=== PATIENT | male | born 1970 | race Two or more races ===

== ENCOUNTER 2016-04-23 20:55 | Emergency (ER) | payer MEDICAID ==
[~2016-04-23] VITALS: Ht 172.7 cm; Wt 77.1 kg
[2016-04-24 05:57] VITALS: BP 115/65
== END 2016-04-24 05:40 | disposition home or self-care (01) ==
LOC: ER 20:56
DX: F10.129 Alcohol abuse with intoxication, unspecified (principal); I10 Essential (primary) hypertension; R79.89 Other specified abnormal findings of blood chemistry
CPT/HCPCS: 36415; 82962; 99283; A4606; G0480; Z7610

== ENCOUNTER 2016-04-24 10:54 | Emergency (ER) | payer MEDICAID ==
[~2016-04-24] VITALS: Ht 172.7 cm; Wt 79.4 kg
[2016-04-24 10:54] VITALS: BP 139/88
== END 2016-04-24 14:54 | disposition left against medical advice (07) ==
LOC: ER 10:58
DX: F10.10 Alcohol abuse, uncomplicated (principal); R73.09 Other abnormal glucose
CPT/HCPCS: 82962; 99283; A4606; Z7610

== ENCOUNTER 2016-04-25 22:48 | Emergency (ER) | payer MEDICAID ==
[~2016-04-25] VITALS: Ht 188 cm; Wt 91.6 kg
[2016-04-25] MEDS ORDERED: IV NS 0.9% 1,000 ML BAG IV ONE (23:00)
[2016-04-25 23:53] LABS: BASOPHILS % (AUTO) 0.1 % (0.0-2.0); DIFF TOTAL % 100 %; EOSINOPHILS % (AUTO) 0.4 % (0.0-6.0); HEMATOCRIT 46 % (39-51); HEMOGLOBIN 15.1 g/dL (13.5-17.5); LYMPHOCYTES # (AUTO) 1.6 /CMM (0.8-4.8); LYMPHOCYTES % (AUTO) 47.7 % (20.0-44.0); MEAN CORPUSCULAR HEMOGLOBIN 29 PG (26.0-33.0); MEAN CORPUSCULAR HGB CONC 33 g/dl (31.0-36.0); MEAN CORPUSCULAR VOLUME 88 fL (80-96); MONOCYTES # (AUTO) 0.1 /CMM (0.1-1.30); MONOCYTES % (AUTO) 3.8 % (2.0-12.0); NEUTROPHILS # (AUTO) 1.6 /CMM (1.8-8.9); PLATELET COUNT (AUTO) 217 /CMM (150-450); RED BLOOD CELL COUNT(AUTO) 5.24 MIL/uL (4.5-6.0); WHITE BLOOD COUNT (AUTO) 3.4 K/uL (4.3-11.0)
[2016-04-26 00:04] LABS: CALCIUM, SERUM 8.4 mg/dL (8.5-10.1); CREATININE 0.8 mg/dL (0.6-1.3); POTASSIUM 3.8 mmol/L (3.5-5.1)
[2016-04-26 00:09] LABS: INR 0.93 (0.87-1.13)
[2016-04-26 00:19] LABS: ALBUMIN 4.2 g/dL (3.4-5.0); BILIRUBIN,DIRECT 0.1 mg/dL (0.0-0.2); BILIRUBIN,TOTAL 0.4 mg/dL (0.2-1.0); INDIRECT BILIRUBIN 0.3 mg/dL (0.0-1.1); SALICYLATE 1.8 mg/dL (2.8-20.0); TOTAL PROTEIN, SERUM 7.6 g/dL (6.4-8.2)
[2016-04-26] MEDS ORDERED: IV SET PRIMARY 1 EA INFUS.SET MC ONE (03:44)
[2016-04-26] MEDS ORDERED: IV NS 0.9% 1,000 ML ONE (03:44)
[2016-04-26 07:35] VITALS: BP 128/76
== END 2016-04-26 07:37 | disposition home or self-care (01) ==
LOC: ER 22:50
DX: F10.121 Alcohol abuse with intoxication delirium (principal); R41.82 Altered mental status, unspecified; I10 Essential (primary) hypertension
CPT/HCPCS: 36415; 51702; 70450; 71010; 72125; 80048; 80076; 80329; 85025; 85730; 93005; 96360; 99285; A4606; G0480 ×2; J7030; Z7610; G6039-TC

== ENCOUNTER 2023-01-19 12:40 | Inpatient (IN) | payer MEDICAID ==
[~2023-01-19] VITALS: Ht 188 cm; Wt 99.3 kg
[~2023-01-19 12:40] MED LIST: ATOR10TA PO; CHLO25CA22 PO; HYDR12.55 PO; Thiamine HCL PO
[2023-01-19 13:32] LABS: BASOPHILS # (AUTO) 0.1 K/uL (0.0-0.2); BASOPHILS % (AUTO) 0.4 % (0.0-2.0); HEMATOCRIT 52 % (39-51); HEMOGLOBIN 16.8 g/dL (13.5-17.5); LYMPHOCYTES # (AUTO) 0.4 K/uL (0.8-4.8); LYMPHOCYTES % (AUTO) 3.3 % (20.0-44.0); MEAN CORPUSCULAR HEMOGLOBIN 28 PG (26.0-33.0); MEAN CORPUSCULAR HGB CONC 33 g/dl (31.0-36.0); MEAN CORPUSCULAR VOLUME 87 fL (80-96); MONOCYTES # (AUTO) 0.7 K/uL (0.1-1.30); MONOCYTES % (AUTO) 5.5 % (2.0-12.0); NEUTROPHILS # (AUTO) 10.7 K/uL (1.8-8.9); NEUTROPHILS % (AUTO) 90.8 % (43.0-81.0); PLATELET COUNT (AUTO) 312 K/uL (150-450); RED BLOOD CELL COUNT(AUTO) 5.96 MIL/uL (4.5-6.0); RED CELL DISTRIBUTION WIDTH 17.3 % (11.5-15.0); WHITE BLOOD COUNT (AUTO) 11.8 K/uL (4.3-11.0)
[2023-01-19 14:04] LABS: ALBUMIN 4.9 g/dL (3.4-5.0); BILIRUBIN,DIRECT 0.2 mg/dL (0.0-0.2); BILIRUBIN,TOTAL 0.7 mg/dL (0.2-1.0); CALCIUM, SERUM 8.7 mg/dL (8.5-10.1); CREATININE 3.1 mg/dL (0.6-1.3); TOTAL PROTEIN, SERUM 8.6 g/dL (6.4-8.2)
[2023-01-19 14:05] LABS: SALICYLATE 2.7 mg/dL (2.8-20.0)
[2023-01-19] MEDS ORDERED: LORAZEPAM INJ 2 MG/ML VIAL IV ONE (20:00)
[2023-01-19] MEDS ORDERED: IV NS 0.9% 1,000 ML BAG IV ONE (20:00)
[2023-01-19] MEDS ORDERED: LORAZEPAM INJ 2 MG/ML VIAL ONE (20:02)
[2023-01-19] MEDS ORDERED: Z GUARD REMEDY 4 OZ OINT TP PRN (22:30)
[2023-01-19] MEDS ORDERED: MAG HYDROX/AL HYDROX/SIMETH 30 ML UDC PO PRN (22:30)
[2023-01-19] MEDS ORDERED: MAGNESIUM HYDROXIDE 30 ML UDC PO PRN (22:30)
[2023-01-19] MEDS: IV NS 0.9% 1,000 ML IV SCH (22:30)
[2023-01-19] MEDS ORDERED: ACETAMINOPHEN 325 MG TABLET PO PRN (22:30)
[2023-01-20] MEDS ORDERED: THIAMINE HCL 100 MG TABLET PO SCH (00:30)
[2023-01-20] MEDS ORDERED: ONDANSETRON HCL/PF 4 MG/2 ML VIAL ONE (03:24)
[2023-01-20] MEDS: ONDANSETRON HCL/PF 4 MG/2 ML VIAL IVP PRN ×2 (03:27→12:36)
[2023-01-20 05:41] LABS: CALCIUM, SERUM 7.7 mg/dL (8.5-10.1); CREATININE 2.8 mg/dL (0.6-1.3); MAGNESIUM 2.5 mg/dL (1.8-2.4); PHOSPHORUS 5.6 mg/dL (2.5-4.9); POTASSIUM 3.9 mmol/L (3.5-5.1)
[2023-01-20 05:46] LABS: BASOPHILS % (AUTO) 0.1 % (0.0-2.0); HEMATOCRIT 44 % (39-51); LYMPHOCYTES # (AUTO) 0.4 K/uL (0.8-4.8); LYMPHOCYTES % (AUTO) 3.6 % (20.0-44.0); MEAN CORPUSCULAR HEMOGLOBIN 29 PG (26.0-33.0); MEAN CORPUSCULAR HGB CONC 34 g/dl (31.0-36.0); MEAN CORPUSCULAR VOLUME 85 fL (80-96); MONOCYTES # (AUTO) 0.7 K/uL (0.1-1.30); MONOCYTES % (AUTO) 6.5 % (2.0-12.0); NEUTROPHILS # (AUTO) 9.5 K/uL (1.8-8.9); NEUTROPHILS % (AUTO) 89.8 % (43.0-81.0); PLATELET COUNT (AUTO) 237 K/uL (150-450); RED BLOOD CELL COUNT(AUTO) 5.19 MIL/uL (4.5-6.0); RED CELL DISTRIBUTION WIDTH 16.8 % (11.5-15.0); WHITE BLOOD COUNT (AUTO) 10.6 K/uL (4.3-11.0)
[2023-01-20] MEDS: IV NS 0.9% 1,000 ML IV SCH ×3 (08:53→23:04)
[2023-01-20] MEDS: FOLIC ACID 1 MG TABLET PO SCH (08:54)
[2023-01-20] MEDS: THIAMINE HCL 100 MG TABLET PO SCH (08:54)
[2023-01-20] MEDS: CHLORDIAZEPOXIDE HCL 25 MG CAPSULE PO SCH ×3 (12:18→21:01)
[2023-01-20 16:00] VITALS: BP 164/94; TEMP 98.6; O2SAT 94
[2023-01-20 18:04] VITALS: BP 150/88; O2SAT 96
[2023-01-20 20:00] VITALS: BP 154/84; TEMP 98.1; O2SAT 98
[2023-01-20] MEDS ORDERED: ATORVASTATIN 10 MG TABLET PO SCH (22:00)
[2023-01-21 06:21] LABS: BASOPHILS % (AUTO) 0.2 % (0.0-2.0); EOSINOPHILS % (AUTO) 0.3 % (0.0-6.0); HEMATOCRIT 39 % (39-51); LYMPHOCYTES # (AUTO) 0.7 K/uL (0.8-4.8); LYMPHOCYTES % (AUTO) 18.4 % (20.0-44.0); MEAN CORPUSCULAR HEMOGLOBIN 29 PG (26.0-33.0); MEAN CORPUSCULAR HGB CONC 34 g/dl (31.0-36.0); MEAN CORPUSCULAR VOLUME 85 fL (80-96); MONOCYTES # (AUTO) 0.4 K/uL (0.1-1.30); MONOCYTES % (AUTO) 9.9 % (2.0-12.0); NEUTROPHILS # (AUTO) 2.8 K/uL (1.8-8.9); NEUTROPHILS % (AUTO) 71.2 % (43.0-81.0); PLATELET COUNT (AUTO) 154 K/uL (150-450); RED BLOOD CELL COUNT(AUTO) 4.53 MIL/uL (4.5-6.0); RED CELL DISTRIBUTION WIDTH 16.5 % (11.5-15.0)
[2023-01-21 06:24] LABS: CALCIUM, SERUM 8.1 mg/dL (8.5-10.1); CREATININE 1.3 mg/dL (0.6-1.3); MAGNESIUM 2.6 mg/dL (1.8-2.4); PHOSPHORUS 1.6 mg/dL (2.5-4.9); POTASSIUM 3.6 mmol/L (3.5-5.1)
[2023-01-21] MEDS: IV NS 0.9% 1,000 ML IV SCH (06:28)
[2023-01-21] MEDS: THIAMINE HCL 100 MG TABLET PO SCH (08:10)
[2023-01-21] MEDS: FOLIC ACID 1 MG TABLET PO SCH (08:10)
[2023-01-21] MEDS: CHLORDIAZEPOXIDE HCL 25 MG CAPSULE PO SCH ×2 (08:10→14:20)
[2023-01-21 08:25] VITALS: BP 156/91; TEMP 98.4; O2SAT 97
[2023-01-21] MEDS ORDERED: CHLO25CA22 PO (09:39)
== END 2023-01-21 15:39 | disposition home or self-care (01) | DRG 280 ==
LOC: ER 12:45 → TRANSITION 23:55 → MED 01-20 08:06
PROVIDERS: ADMIT Internal Medicine; ATTEND Nurse Practitioner Acute Care
DX: K70.9 Alcoholic liver disease, unspecified (principal); N17.0 Acute kidney failure with tubular necrosis; G92.9 Unspecified toxic encephalopathy; F10.129 Alcohol abuse with intoxication, unspecified; E87.20 Acidosis, unspecified; E78.5 Hyperlipidemia, unspecified; I10 Essential (primary) hypertension; Z59.00 Homelessness unspecified; Y90.8 Blood alcohol level of 240 mg/100 ml or more; F10.139 Alcohol abuse with withdrawal, unspecified
CPT/HCPCS: 36415; 70450-TC; 71045-TC; 76770-TC; 80048-TC; 80076-TC; 83735-TC; 84100-TC; 85025-TC; A4223; G0378; G0480; J2060; J2405; J7030